=== PATIENT | female | born 1955 | race Caucasian/White ===

== ENCOUNTER → 2017-06-23 | Outpatient (CLI) | payer OTHER | LOC: FIMAGING 13:06 | PROVIDERS: ATTEND Internal Medicine Geriatric Medicine | DX: Z12.31 Encounter for screening mammogram for malignant neoplasm of breast (principal) | CPT/HCPCS: G0202 ==

== ENCOUNTER 2018-03-01 18:28 | Emergency (ER) | payer OTHER ==
[2018-03-01] MEDS ORDERED: OFLOXACIN 0.3% SOLN PREPACK OPHT.BTL TAKEHOME ONE (19:42)
--- NOTE | 2018-03-01 19:46 | EDPHY ---
H & P Stated Complaint: left eye swelling, redness, discharge Time Seen by Provider: 03/01/18 19:36 HPI/ROS: CHIEF COMPLAINT: Left eye pain and discharge HISTORY OF PRESENT ILLNESS: Patient is a 62-year-old female with history of rheumatoid arthritis who comes to the emergency department complaining of left eye discharge in pain. She has not had any vision changes. She states that it began late this morning is got progressively worse. She does not wear contacts or glasses. REVIEW OF SYSTEMS: Constitutional: denies: chills, fever, recent illness, recent injury EENTM: See HPI Respiratory: denies: cough, shortness of breath Cardiac: denies: chest pain, irregular heart rate, lightheadedness, palpitations Gastrointestinal/Abdominal: denies: abdominal pain, diarrhea, nausea, vomiting, blood streaked stools Genitourinary: denies: dysuria, frequency, hematuria, pain Musculoskeletal: denies: joint pain, muscle pain Skin: denies: lesions, rash, jaundice, bruising Neurological: denies: headache, numbness, paresthesia, tingling, dizziness, weakness Hematologic/Lymphatic: denies: blood clots, easy bleeding, easy bruising Immunologic/allergic: denies: HIV/AIDS, transplant EXAM: GENERAL: Well-appearing, well-nourished and in no acute distress. HEAD: Atraumatic, normocephalic. EYES: Left eye with significant conjunctival erythema and swelling, purulent yellow discharge. No visible abrasion. Visual acuity intact. No erythema or swelling to surrounding skin ENT: TMs normal, nares patent, oropharynx clear without exudates. Moist mucous membranes. NECK: Normal range of motion, supple without lymphadenopathy or JVD. LUNGS: Breath sounds clear to auscultation bilaterally and equal. No wheezes rales or rhonchi. HEART: Regular rate and rhythm without murmurs, rubs or gallops. ABDOMEN: Soft, nontender, normoactive bowel sounds. No guarding, no rebound. No masses appreciated. BACK: No CVA tenderness, no spinal tenderness, step-offs or deformities EXTREMITIES: Normal range of motion, no pitting or edema. No clubbing or cyanosis. NEUROLOGICAL: Cranial nerves II through XII grossly intact. Normal speech, normal gait. 5/5 strength, normal movement in all extremities, normal sensation PSYCH: Normal mood, normal affect. SKIN: Warm, dry, normal turgor, no visible rashes or lesions. Source: Patient Exam Limitations: No limitations - Personal History Current Tetanus/Diphtheria Vaccine: Unsure Current Tetanus Diphtheria and Acellular Pertussis (TDAP): Unsure - Medical/Surgical History Hx Asthma: No Hx Chronic Respiratory Disease: No Hx Diabetes: Yes Hx Cardiac Disease: No Hx Renal Disease: No Hx Cirrhosis: No Hx Alcoholism: No Hx HIV/AIDS: No Hx Splenectomy or Spleen Trauma: No Other PMH: RA, DM - Family History Significant Family History: No pertinent family hx - Social History Smoking Status: Never smoked Alcohol Use: Sober Drug Use: None Constitutional: Initial Vital Signs Temperature (C) 37 C 03/01/18 18:44 Heart Rate 89 03/01/18 18:44 Respiratory Rate 20 03/01/18 18:44 Blood Pressure 122/89 H 03/01/18 18:44 O2 Sat (%) 93 03/01/18 18:44 O2 Delivery Mode Room Air Allergies/Adverse Reactions: hydroxychloroquine [From Plaquenil] Allergy (Verified 03/02/18 15:53) Home Medications: Medication Instructions Recorded celeCOXIB [Celebrex] 500 mg PO Q2ODD 11/17/09 ESCITALOPRAM OXALATE [Lexapro] 10 mg PO 08/06/11 Orencia IM ONCE 08/06/11 methylPREDNISolone [Medrol] 4 mg PO 09/02/11 Arava 20 mg (*) 03/01/18 Metformin HCl 03/02/18 Medical Decision Making ED Course/Re-evaluation: The patient has a severe conjunctivitis. It may be worsened by her rheumatoid arthritis. I will start her on Ocuflox ascended however follow-up soon with an small stock facer. She agrees with this plan. We also discussed indications for returning. Differential Diagnosis: Partial list of the Differential diagnosis considered include but were not limited to; conjunctivitis, corneal abrasion and although unlikely based on the history and physical exam, I also considered cellulitis, perforation, rupture. I discussed these differential diagnoses and the plan with the patient as well as the usual and expected course. The patient understands that the diagnosis is provisional and that in medicine we are not always correct and that further workup is often warranted. Usual and customary warnings were given. All of the patient's questions were answered. The patient was instructed to return to the emergency department should the symptoms at all worsen or return, otherwise to followup with the physician as we discussed. - Data Points Medications Given: Discontinued Medications Ofloxacin (Ocuflox 0.3% Opht Drops Prepack) 1 btl SAIDA EDNOW ONE Stop: 03/01/18 19:43 Last Admin: 03/01/18 19:57 Dose: 1 btl Departure - Departure Disposition: Home, Routine, Self-Care Clinical Impression: Acute conjunctivitis, left eye Qualifiers: Acute conjunctivitis type: bacterial Qualified Code(s): H10.32 - Unspecified acute conjunctivitis, left eye Condition: Fair Instructions: Ofloxacin (Into the eye), Conjunctivitis (ED) Referrals: Helene Andrews MD [Primary Care Provider] - As per Instructions Sheree Hopkins MD [Non Staff Provider ()] - 1-2 days without fail Stand Alone Forms: Work Excuse
[2018-03-01 20:04] VITALS: BP 158/91
== END 2018-03-01 20:04 | disposition home or self-care (01) ==
DX: H10.32 Unspecified acute conjunctivitis, left eye (principal); E11.9 Type 2 diabetes mellitus without complications; Z79.84 Long term (current) use of oral hypoglycemic drugs

== ENCOUNTER 2018-03-02 15:18 | Inpatient (IN) | payer OTHER ==
[2018-03-02] MEDS ORDERED: HYDROmorphONE/DILAUDID 2 MG/ML INJ IVP ONE (16:36)
[2018-03-02] MEDS ORDERED: KETOROLAC 30 MG/1 ML SDV IVP ONE (16:36)
--- NOTE | 2018-03-02 16:40 | EDPHY ---
H & P Stated Complaint: PERIORBITAL CELLULITIS L EYE Time Seen by Provider: 03/02/18 15:19 HPI/ROS: CHIEF COMPLAINT: eye infection HISTORY OF PRESENT ILLNESS: The patient is a 62-year-old female with a history of diabetes as well as rheumatoid arthritis. She is not on steroids but is on Arava. I saw her yesterday for a left eye conjunctivitis which was quite impressive but limited to the conjunctiva. She had purulent discharge and normal vision. No trauma. Overnight her symptoms worsened and she states that her eyelids began swelling enough that she could not open them. She could not dose her Ocuflox. Today she followed up with Ophthalmology as recommended. She saw Dr. Frazier who diagnosed orbital cellulitis and recommended she be admitted. She wanted to return here rather than [facility]. He called and recommended she have a CT of her orbits and cultures be sent. He also obtain a culture of her conjunctiva and sent it with her. REVIEW OF SYSTEMS: Constitutional: Some chills EENTM: See HPI Respiratory: denies: cough, shortness of breath Cardiac: denies: chest pain, irregular heart rate, lightheadedness, palpitations Gastrointestinal/Abdominal: denies: abdominal pain, diarrhea, nausea, vomiting, blood streaked stools Genitourinary: denies: dysuria, frequency, hematuria, pain Musculoskeletal: denies: joint pain, muscle pain Skin: denies: lesions, rash, jaundice, bruising Neurological: denies: headache, numbness, paresthesia, tingling, dizziness, weakness Hematologic/Lymphatic: denies: blood clots, easy bleeding, easy bruising Immunologic/allergic: denies: HIV/AIDS, transplant EXAM: GENERAL: Well-appearing, well-nourished and in no acute distress. HEAD: Atraumatic, normocephalic. EYES: Pupils equal round and reactive to light, extraocular movements intact, sclera anicteric, conjunctiva are normal. ENT: Very edematous and erythematous left eyelid upper and lower extending into the surrounding skin. Extremely purulent discharge from the eye and conjunctival inflammation. She can see out of that eye when opened. NECK: Normal range of motion, supple without lymphadenopathy or JVD. LUNGS: Breath sounds clear to auscultation bilaterally and equal. No wheezes rales or rhonchi. HEART: Regular rate and rhythm without murmurs, rubs or gallops. ABDOMEN: Soft, nontender, normoactive bowel sounds. No guarding, no rebound. No masses appreciated. BACK: No CVA tenderness, no spinal tenderness, step-offs or deformities EXTREMITIES: Normal range of motion, no pitting or edema. No clubbing or cyanosis. NEUROLOGICAL: Cranial nerves II through XII grossly intact. Normal speech, normal gait. 5/5 strength, normal movement in all extremities, normal sensation PSYCH: Normal mood, normal affect. SKIN: Warm, dry, normal turgor, no visible rashes or lesions. - Personal History Current Tetanus/Diphtheria Vaccine: Unsure - Medical/Surgical History Hx Asthma: No Hx Chronic Respiratory Disease: No Hx Diabetes: Yes Hx Cardiac Disease: No Hx Renal Disease: No Hx Cirrhosis: No Hx Alcoholism: No Hx HIV/AIDS: No Hx Splenectomy or Spleen Trauma: No Other PMH: RA, DM - Family History Significant Family History: No pertinent family hx - Social History Smoking Status: Never smoked Alcohol Use: Sober Constitutional: Initial Vital Signs Temperature (C) 37 C 03/02/18 15:54 Heart Rate 78 03/02/18 15:54 Respiratory Rate 20 03/02/18 15:54 Blood Pressure 132/84 H 03/02/18 15:54 O2 Sat (%) 94 03/02/18 15:54 O2 Delivery Mode Room Air Allergies/Adverse Reactions: hydroxychloroquine [From Plaquenil] Allergy (Verified 03/02/18 15:53) Home Medications: Medication Instructions Recorded Abatacept [Orencia] 750 mg IV Q28D 03/02/18 Cholecalciferol Vit D3 [Vitamin D3 50,000 unit PO FR 03/02/18 (*)] Escitalopram Oxalate [Lexapro] 20 mg PO DAILY 03/02/18 Leflunomide [Arava 10 mg (*)] 10 mg PO DAILY 03/02/18 Metformin HCl 03/02/18 celeCOXIB [Celebrex (*)] 200 mg PO DAILY PRN 03/02/18 Medical Decision Making - Diagnostics Imaging Results: Imaging Impressions Internal Auditory Canal CT 03/02/18 16:34 Impression: 1. No postseptal inflammation or abscess. 2. Left periorbital soft tissue swelling with a small fluid collection anterior to the left globe, possibly within the eyelid or between the eyelid and globe. Findings discussed with Dr. Dmitriy Mcintosh on 03/02/2018 at 17:40. Imaging: Discussed imaging studies w/ square dance caller Radiologist ED Course/Re-evaluation: The patient's eye exam is quite impressive and much worse than yesterday. It is now extended to the surrounding skin I have sent blood cultures and will obtain a CT and start antibiotics. I will consult ID. 4:50 p.m. I discussed the case with Dr. Ezequiel Ramsey who recommends starting her on Unasyn and vancomycin and will consult. 5:[address] Ramsey is here and is evaluated the patient and agrees with the plan thus far. 5:45 p.m. I discussed the case with Dr. Barrera who will admit. I have paged Ophthalmology to consult about the small abscess in her eyelid. 6:00 p.m. I spoke with Dr. Hopkins from Ophthalmology who will consult. She also spoke with the parakeet raiser who saw her today. She recommends IV antibiotics at this point and would wait before draining any abscess. Critical Care Time: Critical care time spent by me, Dr. Mcintosh exclusive with this patient was 45 minutes, exclusive of the PA time exclusive of procedures. The organ system that was at risk was ocular and I gave diagnosis, testing, antibiotics, consultation and admission to prevent worsening of the patient's condition - Data Points Laboratory Results: Laboratory Results 03/02/18 16:37 03/02/18 16:37 03/02/18 03/02/18 03/02/18 17:35 16:37 16:37 WBC RBC Hgb Hct MCV MCH MCHC RDW Plt Count MPV Neut % (Auto) Lymph % (Auto) [place] % (Auto) Eos % (Auto) Baso % (Auto) Nucleat RBC Rel Count Absolute Neuts (auto) Absolute Lymphs (auto) Absolute Monos (auto) Absolute Eos (auto) Absolute Basos (auto) Absolute Nucleated RBC Immature Gran % Immature Gran # PT 13.9 SEC SEC (12.0-15.0) INR 1.05 (0.83-1.16) APTT 28.6 SEC SEC (23.0-38.0) VBG Lactic Acid 1.3 mmol/L mmol/L (0.7-2.1) Sodium 138 mEq/L mEq/L (135-145) Potassium 4.1 mEq/L mEq/L (3.5-5.2) Chloride 102 mEq/L mEq/L (97-110) Carbon Dioxide 23 mEq/l mEq/l (22-31) Anion Gap 13 mEq/L mEq/L (8-16) BUN 11 mg/dL mg/dL (7-23) Creatinine 0.6 mg/dL mg/dL (0.6-1.0) Estimated GFR > 60 Glucose 158 mg/dL H mg/dL (70-100) Calcium 9.5 mg/dL mg/dL (8.5-10.4) Total Bilirubin 1.2 mg/dL mg/dL (0.1-1.4) 03/02/18 16:37 WBC 11.19 10^3/uL H 10^3/uL (3.80-9.50) RBC 5.23 10^6/uL 10^6/uL (4.18-5.33) Hgb 15.1 g/dL g/dL (12.6-16.3) Hct 45.3 % % (38.0-47.0) MCV 86.6 fL fL (81.5-99.8) MCH 28.9 pg pg (27.9-34.1) MCHC 33.3 g/dL g/dL (32.4-36.7) RDW 13.5 % % (11.5-15.2) Plt Count 196 10^3/uL 10^3/uL (150-400) MPV 11.3 fL fL (8.7-11.7) Neut % (Auto) 80.3 % H % (39.3-74.2) Lymph % (Auto) 10.3 % L % (15.0-45.0) [place] % (Auto) 7.5 % % (4.5-13.0) Eos % (Auto) 0.7 % % (0.6-7.6) Baso % (Auto) 0.8 % % (0.3-1.7) Nucleat RBC Rel Count 0.0 % % (0.0-0.2) Absolute Neuts (auto) 8.99 10^3/uL H 10^3/uL (1.70-6.50) Absolute Lymphs (auto) 1.15 10^3/uL 10^3/uL (1.00-3.00) Absolute Monos (auto) 0.84 10^3/uL H 10^3/uL (0.30-0.80) Absolute Eos (auto) 0.08 10^3/uL 10^3/uL (0.03-0.40) Absolute Basos (auto) 0.09 10^3/uL 10^3/uL (0.02-0.10) Absolute Nucleated RBC 0.00 10^3/uL 10^3/uL (0-0.01) Immature Gran % 0.4 % % (0.0-1.1) Immature Gran # 0.04 10^3/uL 10^3/uL (0.00-0.10) PT INR APTT VBG Lactic Acid Sodium Potassium Chloride Carbon Dioxide Anion Gap BUN Creatinine Estimated GFR Glucose Calcium Total Bilirubin Microbiology Results: MICROBIOLOGY 03/02/18 17:10 Eye - Swab Gram Stain - Final Medications Given: Sodium Chloride (Ns) 1,000 mls @ 100 mls/hr IV CONT TORI Stop: 03/03/18 05:14 Last Admin: 03/02/18 20:00 Dose: 1,000 mls Discontinued Medications Ampicillin Sodium/Sulbactam Sodium (Unasyn) 3 gm IV EDNOW ONE Stop: 03/02/18 17:31 Last Admin: 03/02/18 18:40 Dose: 3 gm Hydromorphone HCl (Dilaudid) 0.5 mg IVP EDNOW ONE Stop: 03/02/18 16:37 Last Admin: 03/02/18 16:54 Dose: 0.5 mg Vancomycin/Sodium Chloride (Vancomycin 1 Gm (Premix)) 250 mls @ 250 mls/hr IV EDNOW ONE PRN Reason: Protocol Stop: 03/02/18 17:49 Last Admin: 03/02/18 17:07 Dose: 250 mls Ketorolac Tromethamine (Toradol) 15 mg IVP EDNOW ONE Stop: 03/02/18 16:37 Last Admin: 03/02/18 16:54 Dose: 15 mg Departure - Departure Disposition: [facility] Clinical Impression: Periorbital cellulitis of left eye, Abscess of eyelid left eye, unspecified eyelid Condition: Fair
[2018-03-02 16:50] LABS: PLATELET COUNT 196 10^3/uL (150-400)
[2018-03-02] MEDS ORDERED: VANCOMYCIN HCL/NORMAL SALINE 250 ML IV ONE (16:50)
[2018-03-02] MEDS ORDERED: AMPICILLIN/SULBACTAM 3 GM VIAL IV ONE ×2 (16:50→17:30)
[2018-03-02] MEDS ORDERED: IOPAMIDOL (ISOVUE-300) 100 ML BTL ONE (16:58)
[2018-03-02 17:13] LABS: INR 1.05 (0.83-1.16); PROTIME(PATIENT) 13.9 SEC (12.0-15.0)
[2018-03-02] MEDS ORDERED: ACETAMINOPHEN 325 MG TAB PO PRN (17:48)
[2018-03-02] MEDS ORDERED: ONDANSETRON 4 MG/2 ML VIAL IVP PRN (17:48)
[2018-03-02] MEDS ORDERED: ONDANSETRON DISINTEGRATING 4 MG TAB PO PRN (17:48)
--- NOTE | 2018-03-02 18:53 | GCON ---
[f rep st] CONSULTATION INFECTIOUS DISEASES CONSULTATION DATE OF CONSULTATION: 03/02/2018 REQUESTING PHYSICIAN: Dr. Dmitriy Mcintosh. REASON FOR CONSULTATION: Possible orbital cellulitis. HISTORY OF PRESENT ILLNESS: Patient is a 62-year-old female with a past medical history of type 2 di abetes mellitus and rheumatoid arthritis, on Arava and Orencia, whom I am asked to see in consultatio n for possible left-sided orbital cellulitis. The patient describes developing eye redness and pain yesterday without preceding injury. She was seen in the emergency department yesterday, at which poi nt in time, findings were consistent with severe conjunctivitis. The patient also had concomitant dr sims from her eye. She did not have significant visual impairment. She was instructed to follow u p with Ophthalmology today, which was done in [place]. The patient notes in the interim, she develo ped increasing left eye pain with development of erythema around the eye and swelling of her eyelid s uch that they were crusted shut. She notes that her vision also decreased significantly, where she w as only able to see light and a yellow haziness. She continues to have drainage from the eye. She d escribes having bronchitis approximately 4 weeks ago, treated with 5 days of prednisone. She notes t hat symptoms were primarily in her respiratory system, although did have some nasal congestion. She does not describe any oropharyngeal symptoms currently or nasal drainage. She has not had significan t sinus tenderness. No recent dental problems or dental work. She describes feeling hot and cold bu t did not check her temperature. No rigors. In the emergency department, she was noted to have find ings concerning for possible orbital cellulitis and started empirically on Unasyn. Given the above f indings, I am now asked to assist in her ongoing management. PAST MEDICAL HISTORY: Diabetes mellitus, rheumatoid arthritis, depression, hepatic steatosis, hyperl ipidemia, reactive airways disease. PAST SURGICAL HISTORY: Tonsillectomy/adenoidectomy. MEDICATIONS: Prior to admission: Lexapro 20 mg orally daily, metformin 500 mg p.o. b.i.d., Ventolin as needed, Arava 20 mg p.o. daily, Celebrex 200 mg p.o. daily, Orencia 750 mg IV monthly, calcium wi th vitamin D daily. ALLERGIES: Plaquenil, associated with hair loss and paranoid symptoms. SOCIAL HISTORY: Patient does not smoke. She drinks alcohol socially on rare occasions. No drug use history. No unusual travel. There are pet cats and dogs at home. FAMILY HISTORY: Diabetes mellitus, hypertension. REVIEW OF SYSTEMS: Outside that noted in the HPI, remainder of a 10-system review is unremarkable. PHYSICAL EXAMINATION: VITAL SIGNS: Temperature 37.0, heart rate 78, respiratory rate 20, blood pres sure 132/84, oxygen saturation 94% on room air. GENERAL: Patient is well nourished and well develop ed, with mild distress secondary to eye pain, but appears nontoxic. HEENT: The left eye shows circu mferential erythema in a preseptal distribution; there is edema of the lid with the eye being swollen shut; with opening of the eyelids, purulent material drains from the medial portion of the eyelid; e xtraocular muscles appear intact although may have subtle limitation with full lateral motion; there is conjunctival chemosis present; no overt proptosis present. The right eye and periorbital region a ppear normal. There is no nasal discharge. There is no nasal necrosis or eschar; the oropharynx sophia ws moist mucous membranes with no palatal eschar; dentition appears in fair repair; there is no pain over the frontal, maxillary or mastoid regions. NECK: Supple without palpable lymphadenopathy or th yromegaly. CHEST: Clear to auscultation bilaterally without adventitious sounds. Respiratory effor t is normal. CARDIOVASCULAR: Regular rate and rhythm without murmurs, gallops, or rubs. ABDOMEN: Soft, nontender, nondistended. There is no palpable organomegaly. Bowel sounds are present. MUSCUL OSKELETAL: There is no cyanosis, clubbing, or edema. SKIN: See HEENT exam; skin is warm and dry to touch; no stigmata of endocarditis. NEUROLOGIC: The patient is alert and interacts appropriately w ith examiner; cranial nerve exam is intact with extraocular muscle function as outlined above; there is no facial droop present; muscle tone and bulk are normal, sensation is grossly intact. LYMPHATICS : No cervical or supraclavicular nodes. LABORATORY DATA: White blood cell count 11.2, hematocrit 45.3, platelets 196, neutrophils 80%. Seru m creatinine is 0.6, venous lactate is 1.3, INR is 1.1. Blood cultures x2 are pending. IMPRESSION: Left-sided facial cellulitis with concern for orbital cellulitis: Clinical findings are concerning for possible orbital cellulitis, given visual impairment and conjunctival chemosis. Most likely, this will be due to pathogen such as Staphylococcus aureus or beta-hemolytic streptococci. Streptococcus pneumoniae, other streptococcal species, or upper respiratory marino all of consideratio n. Given her immunosuppression, more invasive disease including that due to fungi is also in the dif ferential diagnosis, although no significant sinus symptoms present and no findings of palatal or evita al eschar on exam. Given the purulent drainage, query if this has associated dacryocystitis. RECOMMENDATIONS: 1. Agree with empiric Unasyn 3 g IV q.6 hours. 2. Vancomycin 1 g IV q.12 hours to cover community-acquired MRSA. 3. Agree with plans for facial CT to further assess for orbital cellulitis and sinusitis. 4. Agree with plans for ophthalmology consultation. 5. Cultures were obtained from the purulent material at the time of my exam. 6. Follow up blood cultures and clinical exam over time. 7. Thank you for this consultation. We will continue to follow the patient with you. /[id number]/MODL
[2018-03-02] MEDS ORDERED: HYDROCODONE/APAP 5/325 TAB PO PRN (19:06)
[2018-03-02] MEDS ORDERED: D50W 25 GM/50 ML VIAL IVP PRN (19:08)
[2018-03-02] MEDS ORDERED: NS 1,000 ML IV SCH (19:15)
--- NOTE | 2018-03-02 19:48 | GHP ---
[f rep st] HISTORY AND PHYSICAL DATE OF ADMISSION: 03/02/2018 CHIEF COMPLAINT: left facial cellulitis, possible orbital involvement HISTORY OF PRESENT ILLNESS: A pleasant 62-year-old female with history of type 2 diabetes, rheumatoid arthritis, on Arava and Orencia, who was evaluated in the ER for left-sided orbital cellulitis.Findings then were consistent with severe conjunctivitis. Had a sudden onset of eye redness and pain yesterday with no precipitating trauma. Had some drainage of her eye yesterday, but no visual impairment. She was instructed to follow up with Ophthalmology today, which she did in [place]. Since yesterday, the swelling and drainage has gotten worse. She tried to put eyedrops in at 1 a.m. this morning and could not due to the swelling. It has become more painful; especially when looking to her periphery. During my exam, she can only see a light and yellow blanket of haziness. Drainage is must worse. Denies any sinus pressure or pain. No fevers, chills, or sweats. REVIEW OF SYSTEMS: I completed a 10-point review of systems, negative except as noted in HPI. PAST MEDICAL HISTORY: Rheumatoid arthritis, on immunosuppressant. Type 2 diabetes. Gallstones. Fatty liver disease. PAST SURGICAL HISTORY: Tonsillectomy, adenoidectomy, ingrown toenails. SOCIAL: She lives in [place]. Has 2 cats, dogs. No tobacco, alcohol, illicits. FAMILY HISTORY: Paternal grandfather with diabetes. Grandfather with a stroke. Mother with diabetes. HOME MEDICATIONS: 1. Celebrex. 2. Lexapro. 3. Orencia. 4. Vitamin D3. 5. Arava 10 daily. 6. Metformin. ALLERGIES: Plaquenil. PHYSICAL EXAM: VITAL SIGNS: Temperature 37, blood pressure 132/84, heart rate 70, respiration 20, 94% on room air. GENERAL: Sitting up in bed, no acute distress. HEENT: Left eye with periorbital swelling and redness. The eye is swollen shut. She does have purulent drainage, which is more significant when opening the eye, in the medial aspect of her eyelid. There is no nasal discharge. She has mild oropharyngeal erythema but no exudate. CARDIOVASCULAR : Regular rate and rhythm. No murmurs, gallops, rubs. LUNGS: Clear. ABDOMEN : Soft, nontender, nondistended. Positive bowel sounds. : No Anthony. MUSCULOSKELETAL: 5/5 upper and lower extremity strength. SKIN: Warm, dry. No rash. NEUROLOGIC: 2 through 12 intact. LYMPH: Positive cervical lymphadenopathy on the left with mild tenderness with palpation. LABORATORY: WBC 11, hemoglobin 16, hematocrit 45, platelets 196. Coags within normal. Lactate is 1.3. Sodium 138, potassium 4.1, chloride 102, carbon dioxide 23, creatinine 0.6, glucose 158, total bilirubin 1.2. CT: No postseptal inflammation or abscess. Left periorbital soft tissue swelling with small fluid collection anterior to the left globe, possibly within the eyelid or between the eyelid and globe. ASSESSMENT AND PLAN: 1. Left-sided facial cellulitis, concern for orbital involvement: seen by Dr. Ramsey, recommending Vancomycin/Unasyn. CT shows no abscess, but there is tissue swelling and fluid collection anterior to the left globe. Ophthalmology has been consulted from the ER and will consult. She has no evidence of sepsis. She has normal lactate. Mild leukocytosis, secondary to acute infection. Antibiotics as above. 2. Rheumatoid arthritis. Hold immunosuppressants. 3. Diabetes. Sliding scale here. 4. Diet: Regular. 5. Deep venous thrombosis prophylaxis: Sequential compression devices. DISPOSITION: Patient warrants inpatient admission given acute facial, suspected orbital cellulitis, requiring IV antibiotics and ophthalmology consultation. /[id number]/MODL MTDD
[2018-03-02] MEDS: KETOROLAC 15 MG/1 ML SDV IVP SCH (23:04)
[2018-03-02] MEDS: AMPICILLIN/SULBACTAM 3 GM VIAL IV SCH (23:05)
[2018-03-03] MEDS: VANCOMYCIN 1 GM in NS 250 ML IV SCH ×2 (04:37→16:43)
[2018-03-03] MEDS ORDERED: VANCOMYCIN HCL/NORMAL SALINE 250 ML IV SCH (05:00)
[2018-03-03] MEDS: KETOROLAC 15 MG/1 ML SDV IVP SCH ×3 (05:51→18:15)
[2018-03-03] MEDS: AMPICILLIN/SULBACTAM 3 GM VIAL IV SCH ×3 (05:52→18:15)
--- NOTE | 2018-03-03 09:24 | PDMN ---
Medical Necessity Medical necessity: M70 cellulitis: orbital infection: A-2 days : L sided facial cellulitis , concerning for orbital involvement. , ophthalmology consult pend., Pt with rheumatoid arthritis, DM, further monitoring and tx needed anticipate > 2 midnights
[2018-03-03] MEDS: INSULIN LISPRO 100 UNIT/ML SC SCH ×3 (10:14→18:16)
--- NOTE | 2018-03-03 13:35 | PCMIDPN ---
Assessment/Plan: Assessment/Plan: * Left periorbital cellulitis: CT scan does not show findings of orbital cellulitis although still has significant conjunctival chemosis and visual impairment although vision now improved. CT raises concern for localized abscess over eyelid (cannot discretely palpate abscess on exam). Continues to have purulent drainage medially. Able to keep eye open slightly after initially opened which gentle traction. Gram stain of purulent material shows 2 + gram-positive cocci with cultures currently pending. Most likely will be due to Staphylococcus aureus or beta-hemolytic streptococci/other streptococcal species. Discussed with Ophthalmology who will see patient later today. Time spent, 35 minutes, of which > 1/2 was spent in education/counseling/ coordination of care related to facial cellulitis. 03/03/18 13:31 03/03/18 13:41 Subjective: Patient without significant interval change in symptoms. Notes that her vision is improved and can see me in fuzzy fashion after eyelids gently retracted. Objective: Vital Signs Temp Pulse Resp BP Pulse Ox 36.9 C 76 16 136/76 H 95 03/03/18 12:00 03/03/18 12:00 03/03/18 12:00 03/03/18 12:00 03/03/18 12:00 Laboratory Results 03/03/18 05:05 03/02/18 03/03/18 03/04/18 05:59 05:59 05:59 Intake Total 250 Balance 250 Vancomycin # 1 Unasyn # 1 Eye drainage gram stain 2+ GPC, culture pending Blood cultures x2 no growth CT scan with left periorbital soft tissue swelling with possible abscess within the eyelid or posterior to the eyelid; no evidence of postseptal inflammation, no evidence of sinusitis - Physical Exam General Appearance: alert, non-toxic EENT: other (Periorbital erythema and edema similar to exam yesterday p.m.; lids closed shut with crusting; gentle retraction applied showing residual conjunctival erythema and chemosis; seropurulent drainage medially; able to move high in all directions although may have mild limitation in extreme lateral gaze; pupil 2 mm and appears reactive) Respiratory: lungs clear, No respiratory distress Cardiac/Chest: regular rate, rhythm Abdomen: non-tender, No distended Lymphatic: adenopathy (Tender adenopathy left anterior cervical chain) ICD10 Worksheet Patient Problems: Problems Problem Status Onset Abscess of eyelid left eye, unspecified eyelid Acute Periorbital cellulitis of left eye Acute
--- NOTE | 2018-03-03 14:30 | HOSPPROG ---
Hospitalist Progress Note Assessment/Plan: 62 yo F w orbital cellulitis, dm and RA on immunomodulatory agents cellulitis: c/f possible abscess continue vanc unasyn ophthalmology to see (appreciated) RA: hold immunomodulators dm: hold metformin lispro ss proph: start LMWH when need for surgical intervention clarified dispo: inpt Subjective: case d/w dr sahu. able to see out of R eye Objective: Vital Signs Temp Pulse Resp BP Pulse Ox 36.9 C 76 16 136/76 H 95 03/03/18 12:00 03/03/18 12:00 03/03/18 12:00 03/03/18 12:00 03/03/18 12:00 Laboratory Results 03/03/18 05:05 03/02/18 03/03/18 03/04/18 05:59 05:59 05:59 Intake Total 250 Balance 250 PT 13.9 SEC (12.0-15.0) 03/02/18 16:37 INR 1.05 (0.83-1.16) 03/02/18 16:37 - Physical Exam Constitutional: no apparent distress, appears nourished Eyes: other (L eye edematous, erythematous, purulence) Ears, Nose, Mouth, Throat: moist mucous membranes, hearing normal Cardiovascular: regular rate and rhythym, no murmur, rub, or gallop Respiratory: no respiratory distress, no rales or rhonchi Gastrointestinal: normoactive bowel sounds, soft, non-tender abdomen Genitourinary: No mullins in urethra Skin: warm, normal color Musculoskeletal: full muscle strength Neurologic: AAOx3 ICD10 Worksheet Patient Problems: Problems Problem Status Onset Abscess of eyelid left eye, unspecified eyelid Acute Periorbital cellulitis of left eye Acute
--- NOTE | 2018-03-03 17:30 | ASMTCMCOM ---
CM Note CM Note Notes: Pt. is a 62-year-old woman admitted with orbital cellulitis. Hx. diabetes and rheumatoid arthritis. Pt. appears to live alone. Is a [employer] employee. On IV antibiotics. CM to follow to see if Pt. will need IVs at d/c. Plan: TBD Date Signed: 03/03/2018 05:29 PM Electronically Signed By:Natalie Lopes LCSW
[2018-03-04] MEDS: KETOROLAC 15 MG/1 ML SDV IVP SCH ×4 (00:36→18:43)
[2018-03-04] MEDS: AMPICILLIN/SULBACTAM 3 GM VIAL IV SCH ×4 (00:36→18:43)
[2018-03-04] MEDS: INSULIN LISPRO 100 UNIT/ML SC SCH ×3 (08:33→18:30)
[2018-03-04] MEDS: ESCITALOPRAM OXALATE 10 MG TAB PO SCH (09:57)
--- NOTE | 2018-03-04 10:18 | HOSPPROG ---
Hospitalist Progress Note Assessment/Plan: 62 yo F w orbital cellulitis, dm and RA on immunomodulatory agents cellulitis: improved continue unasyn seen by optho (no note) who felt no surgical intervention needed RA: hold immunomodulators dm: hold metformin lispro ss last a1c 6.2 proph: start LMWH when need for surgical intervention clarified dispo: inpt Subjective: case d/w dr sahu. eye significantly improved Objective: Vital Signs Temp Pulse Resp BP Pulse Ox 36.9 C 70 16 102/73 95 03/04/18 07:14 03/04/18 07:14 03/04/18 07:14 03/04/18 07:14 03/04/18 07:14 Laboratory Results 03/03/18 05:05 03/03/18 03/04/18 03/05/18 05:59 05:59 05:59 Intake Total 250 410 Balance 250 410 PT 13.9 SEC (12.0-15.0) 03/02/18 16:37 INR 1.05 (0.83-1.16) 03/02/18 16:37 - Physical Exam Constitutional: no apparent distress, appears nourished Eyes: other (L eye w significantly decreased erythema and edema. goopy dc from eye w injected sclera. acuity improving but still cannot read my ID at 10") Ears, Nose, Mouth, Throat: moist mucous membranes, hearing normal Cardiovascular: regular rate and rhythym, no murmur, rub, or gallop Respiratory: no respiratory distress, clear to auscultation Gastrointestinal: normoactive bowel sounds, soft, non-tender abdomen Genitourinary: no bladder fullness, No mullins in urethra Skin: warm, normal color Musculoskeletal: full muscle strength, no muscle tenderness Neurologic: AAOx3 Psychiatric: interacting appropriately ICD10 Worksheet Patient Problems: Problems Problem Status Onset Abscess of eyelid left eye, unspecified eyelid Acute Periorbital cellulitis of left eye Acute
--- NOTE | 2018-03-04 10:21 | PCMIDPN ---
Assessment/Plan: Assessment/Plan: * Left periorbital cellulitis: Marked clinical improvement and now able to open her eye without retraction. Continued decrease in visual acuity but overall improved. Cultures from purulent material show growth of group A Streptococcus which is likely pathogen in this setting. Continue Unasyn. Vancomycin discontinued yesterday based on isolation of group A Streptococcus. Not ready to transition to oral antibiotic therapy currently. Reviewed findings with Ophthalmology yesterday with impression that eyelid abscess not present. Clinical findings and plan reviewed with patient Dr. Peacock. 03/04/18 10:18 03/04/18 10:21 03/04/18 10:21 Subjective: Patient feels significantly improved with ability to open her eye without having to retract eyelids. Continues to have some drainage and impaired visual acuity. Objective: Vital Signs Temp Pulse Resp BP Pulse Ox 36.9 C 70 16 102/73 95 03/04/18 07:14 03/04/18 07:14 03/04/18 07:14 03/04/18 07:14 03/04/18 07:14 Laboratory Results 03/03/18 05:05 03/03/18 03/04/18 03/05/18 05:59 05:59 05:59 Intake Total 250 410 Balance 250 410 Unasyn # 2 Blood cultures x2 no growth Eye drainage with growth of group A Streptococcus - Physical Exam General Appearance: alert, no apparent distress, non-toxic EENT: other (Periorbital erythema and edema on left significantly decreased; still with conjunctival injection with less prominent drainage; tenderness markedly decreased; no eschar within nose or on palate) Respiratory: lungs clear, No respiratory distress Cardiac/Chest: regular rate, rhythm, systolic murmur (2/6 left upper sternal border) ICD10 Worksheet Patient Problems: Problems Problem Status Onset Abscess of eyelid left eye, unspecified eyelid Acute Periorbital cellulitis of left eye Acute
--- NOTE | 2018-03-04 12:24 | GCON ---
[f rep st] CONSULTATION OPHTHALMOLOGICAL CONSULTATION. CHIEF COMPLAINT: Severe swelling of the left eye. HISTORY OF PRESENT ILLNESS: A 62-year-old white female was seen in the ER 1 day prior to admission a nd diagnosed with acute conjunctivitis OS. She states that the eye continued to swell and became mor e painful resulting in loss of vision due to the eye being forced closed. She was admitted to the [facility] by the ID service for presumptive diagnosis of preseptal cellulitis related to a bacterial conj unctivitis. PAST MEDICAL HISTORY: Includes rheumatoid arthritis. MEDICATIONS: Include Arava as well as an infusion which she could not recall the name of. SOCIAL HISTORY: Nonapplicable. FAMILY HISTORY: Nonapplicable. ALLERGIES: No know drug allergies. PHYSICAL EXAMINATION: Visual acuity at near with reading glasses was 20/25 OD and 20/40 OS. Pressur e: Eyes were soft to palpation. Pupils: No Afferent pupillary defect noted. Penlight examination: OD completely within normal limits. OS had s ignificant periorbital erythema and edema with significant mucous discharge. The conjunctiva was inj ected. The cornea was clear. The anterior chamber was clear. Iris round and reactive. Some mild n uclear sclerotic cataract in place. Dilated fundus exam of both eyes did not reveal any abnormalitie s of the macula, periphery, vessels or optic nerve. The cup-to-disc ratio was 0.2 in each eye. IMPRESSION: Acute preseptal cellulitis related to bacterial conjunctivitis left eye unknown etiology . Cultures pending. Continue intravenous Unasyn and vancomycin. Follow up with Ophthalmology on lisa unless symptoms worsen. Please reconsult if needed. This information was relayed to Dr. Adi landers via telephone as well as explained to the patient and the patient will be seen on an outpatient bas is. /[id number]/MODL
[2018-03-04] MEDS: ENOXAPARIN 40 MG/0.4 ML SYR SC SCH (12:46)
[2018-03-05] MEDS: AMPICILLIN/SULBACTAM 3 GM VIAL IV SCH ×3 (00:01→11:43)
[2018-03-05] MEDS: KETOROLAC 15 MG/1 ML SDV IVP SCH ×3 (00:01→11:43)
[2018-03-05] MEDS: INSULIN LISPRO 100 UNIT/ML SC SCH ×2 (09:07→11:50)
[2018-03-05] MEDS: ESCITALOPRAM OXALATE 10 MG TAB PO SCH (09:11)
[2018-03-05] MEDS: ENOXAPARIN 40 MG/0.4 ML SYR SC SCH (09:12)
--- NOTE | 2018-03-05 10:28 | PCMIDPN ---
Assessment/Plan: 1. Left preseptal cellulitis secondary to group a strep: Markedly better today. I think she is okay to go home on Augmentin 875 p. O. Twice daily for another 11 days. Patient has a follow-up with Dr. Ezequiel Ramsey on ThursdayMarch 09 at 9:00 a.m., and understands she needs to follow up with Ophthalmology as well next week. We will help facilitate that appointment for her. Subjective: Much better. Eager to go home. Vision and has also improved. Having some loose stool, no abdominal pain, nonbloody. No fever. Objective: Unasyn 3 g IV q.6 hours day 3 Afebrile Vital Signs Temp Pulse Resp BP Pulse Ox 36.9 C 70 14 130/69 H 96 03/05/18 07:37 03/05/18 07:37 03/05/18 07:37 03/05/18 07:37 03/05/18 07:37 Laboratory Results 03/03/18 05:05 03/04/18 03/05/18 03/06/18 05:59 05:59 05:59 Intake Total 410 500 Balance 410 500 No new microbiology - Physical Exam General Appearance: alert, no apparent distress, other (Left eye with some conjunctivas injection/sub conjunctival hemorrhage, stable. Pupil is reactive. The soft tissue around her eye is much less swollen, with pinkish erythema, no longer beet red. Much improved. Swelling significantly improved. Patient states that there is no significant purulent drainage from the punctum, and I cannot appreciate this today.) Respiratory: lungs clear Cardiac/Chest: regular rate, rhythm, No systolic murmur ICD10 Worksheet Patient Problems: Problems Problem Status Onset Periorbital cellulitis of left eye Acute Abscess of eyelid left eye, unspecified eyelid Acute
--- NOTE | 2018-03-05 11:37 | ASMTCMCOM ---
CM Note CM Note Notes: Spoke w/, pt will transition to po antibiotics. Pt will dc home independent, no other needs identified, CM available for any changes. DC Plan: Independent Date Signed: 03/05/2018 11:36 AM Electronically Signed By:Manda Streeter RN
[2018-03-05 12:50] VITALS: BP 141/81
[2018-03-05] MEDS ORDERED: CHOLECALCIFEROL VIT D3 50,000 UNIT CAP PO SCH (14:25)
--- NOTE | 2018-03-05 15:57 | GDS ---
[f rep st] DISCHARGE SUMMARY DISCHARGE DIAGNOSES: 1. Acute left preseptal cellulitis secondary to group A streptococcus. 2. Rheumatoid arthritis. 3. Diabetes mellitus. CONSULTATIVE SERVICES: Infectious Disease. HISTORY OF PRESENT ILLNESS: A 62-year-old female presents on 03/02/2018, with severe swelling and di scomfort of the left eye. PROCEDURES: On 03/02/2018, patient had a CT of the facial bones which showed no postseptal inflammat ion or abscess but did identify left preorbital soft tissue swelling and small collection abscess ant erior to the left globe HOSPITAL COURSE BY ISSUE: Acute preseptal cellulitis of the left eye: The patient cultured out grou p A strep from an eye swab, was initially placed on IV vancomycin and transitioned appropriately to t he Unasyn. She had marked improvement in her swelling erythema. On the day of disposition, she is b eing transitioned to oral Augmentin. She is to follow in the outpatient setting with both Infectious Disease as well as outpatient Ophthalmology in the next 7 days. MEDICATIONS AT THE TIME OF DISPOSITION: Please reference the med rec printed on 03/05/2018. FOLLOWUP APPOINTMENTS: 1. With Dr. Ramsey with infectious disease on 03/09/2018. 2. [address] Dr. Hopkins in the next 7 days as well for post-disposition followup. PENDING STUDIES: Studies at the time of this dictation include blood cultures drawn 03/02/2018, jonathon davis are preliminary. No growth to date. TIME SPENT: I spent greater than 30 minutes in the planning and coordination of this discharge. /[id number]/MODL
== END 2018-03-05 13:26 | disposition home or self-care (01) | DRG 603 ==
LOC: OBSVTOIN 17:49 → F3E 19:21
PROVIDERS: ADMIT Internal Medicine; ATTEND Internal Medicine
DX: L03.213 Periorbital cellulitis (principal); B95.0 Streptococcus, group A, as the cause of diseases classified elsewhere; E11.9 Type 2 diabetes mellitus without complications; M06.9 Rheumatoid arthritis, unspecified
CPT/HCPCS: 96365; J0295; J1170; J1650; J1885; J3370; Q9967

== ENCOUNTER → 2018-08-11 | Outpatient (CLI) | payer OTHER | LOC: FIMAGING 08:45 | PROVIDERS: ATTEND Internal Medicine Geriatric Medicine | DX: Z12.31 Encounter for screening mammogram for malignant neoplasm of breast (principal) ==

== ENCOUNTER → 2018-09-21 | Outpatient (CLI) | payer OTHER ==
[~2018-09-21] MED LIST: IOPAMIDOL (ISOVUE-300) 100 ML BTL ONE
== END ==
LOC: FIMAGING 14:58
PROVIDERS: ATTEND Internal Medicine Geriatric Medicine
DX: H92.01 Otalgia, right ear (principal); R59.0 Localized enlarged lymph nodes; M48.02 Spinal stenosis, cervical region
CPT/HCPCS: Q9967

== ENCOUNTER → 2018-10-20 | Outpatient (CLI) | payer OTHER ==
[~2018-10-20] MED LIST changes: +GADOBUTROL 10 ML VIAL IVP ONE; -IOPAMIDOL (ISOVUE-300) 100 ML BTL ONE
== END ==
LOC: FIMAGING 06:30
PROVIDERS: ATTEND Internal Medicine Geriatric Medicine
DX: L03.90 Cellulitis, unspecified (principal); R93.89 Abnormal findings on diagnostic imaging of other specified body structures; M06.9 Rheumatoid arthritis, unspecified; M48.02 Spinal stenosis, cervical region; M50.01 Cervical disc disorder with myelopathy, high cervical region
CPT/HCPCS: 82565-PO; A9585